=== PATIENT | female | born 1950 | race Caucasian/White ===

== ENCOUNTER 2025-05-03 14:02 | Inpatient (IN) | payer MEDICARE, OTHER ==
[~2025-05-03] VITALS: Ht 157.5 cm; Wt 55.5 kg
[2025-05-03 14:36] LABS: COVID AG,FIA SOURCE NPH
[2025-05-03 14:39] LABS: PLATELET COUNT (AUTO) 151 K/uL (150-450); RED BLOOD CELL COUNT(AUTO) 4.28 MIL/uL (4.00-5.20); RED CELL DISTRIBUTION WIDTH 13.4 % (11.5-14.5); WHITE BLOOD COUNT (AUTO) 3.3 K/uL (4.5-11.0)
[2025-05-03 14:45] LABS: CALCIUM, TOTAL 9.2 mg/dL (8.8-10.5); CREATININE 1.52 mg/dL (0.60-1.30); GLOMERULAR FILTR. RATE CALC 33.0 mL/min (>60); GLUCOSE,RANDOM 133.0 mg/dL (70-110); SODIUM SERUM 145.0 mmol/L (136-145); UREA NITROGEN, BLOOD 31.0 mg/dL (7-18)
[2025-05-03 14:59] LABS: ALCOHOL, BLOOD (SERUM) < 3 mg/dL (0-10)
[2025-05-03 15:04] LABS: SARS-COV2 (COVID) ANTIGEN,FIA Negative (Negative)
[2025-05-03 15:21] LABS: APPEARANCE,URINE CLEAR (CLEAR); GLUCOSE, URINE (UA) NEGATIVE (NEGATIVE); LEUKOCYTE ESTERASE ,URINE MODERATE (NEGATIVE); NITRATE,URINE NEGATIVE (NEGATIVE); OCCULT BLOOD,URINE NEGATIVE (NEGATIVE); PH,URINE DRUG SCREEN 5.0 (5.0-8.0); SPECIFIC GRAVITIY, URINE 1.022 (1.003-1.030)
[2025-05-03 15:30] LABS: PLATELET MORPHOLOGY COMMENT LARGE PLTS PRESENT; RBC MORPHOLOGY COMMENT NORMAL RBC MORPH
[2025-05-03 15:32] LABS: SQUAMOUS EPITHELIAL CELL,UR Few /LPF (None Seen)
[2025-05-03] MEDS ORDERED: MIDO5TAB29 PO (16:02)
[2025-05-03] MEDS ORDERED: MELA5TAB40 PO (16:02)
[2025-05-03] MEDS ORDERED: CHOL25TA4 PO (16:02)
[2025-05-03] MEDS ORDERED: IPRA3AMP23 IH (16:02)
[2025-05-03] MEDS ORDERED: ATOR20TA PO (16:02)
[2025-05-03] MEDS ORDERED: CHLO473M6 PO (16:02)
[2025-05-03] MEDS ORDERED: MAGN-169 PO (16:02)
[2025-05-03] MEDS ORDERED: BISA10SU11 PR (16:02)
[2025-05-03] MEDS ORDERED: SODI133E17 PR (16:02)
[2025-05-03] MEDS ORDERED: CALC-959 PO (16:02)
[2025-05-03] MEDS ORDERED: ACET-2247 PO (16:02)
[2025-05-03] MEDS ORDERED: APIX5TAB PO (16:02)
[2025-05-03] MEDS ORDERED: MULT-1303 PO (16:02)
[2025-05-03] MEDS: SODIUM CHLORIDE 0.9% 1,000 ML IV ONE (16:38)
[2025-05-03 16:49] LABS: LACTIC ACID 1.3 mmol/L (0.4-2.0)
[2025-05-03] MEDS: CefTRIAXone 1 GM/DEXTROSE 50 ML IV ONE (16:56)
[2025-05-03 16:58] LABS: ALCOHOL, URINE DRUG SCREEN NEGATIVE (NEGATIVE); AMPHET/METH SCREEN,URINE NEGATIVE (NEGATIVE); BARBITURATE SCREEN, URINE NEGATIVE (NEGATIVE); CANNABINOID SCREEN,URINE NEGATIVE (NEGATIVE); COCAINE SCREEN,URINE NEGATIVE (NEGATIVE); METHADONE SCREEN, URINE NEGATIVE (NEGATIVE)
[2025-05-03] MEDS ORDERED: BISACODYL 10 MG RECTAL RECTAL SUPPOSITORY PR PRN (18:30)
[2025-05-03] MEDS ORDERED: MAGNESIUM HYDROXIDE SUSPENSION 30 ML UDCUP PO PRN (18:30)
[2025-05-03] MEDS: MIDODRINE HCL 5 MG TABLET PO SCH (19:21)
[2025-05-03 20:55] VITALS: BP 101/87; PULSE 71; RESP 18; TEMP 97.5; O2SAT 100
[2025-05-03] MEDS: ATORVASTATIN CALCIUM 20 MG TABLET PO SCH (21:50)
[2025-05-03] MEDS: APIXABAN 5 MG TABLET PO SCH (21:50)
[2025-05-03] MEDS: CHLORHEXIDINE GLUCONATE 0.12% 15 ML UDCUP ORAL RINSE PO SCH (21:50)
[2025-05-04 03:45] VITALS: BP 133/94; PULSE 77; RESP 18; TEMP 98.2; O2SAT 95
[2025-05-04] MEDS: MULTIVITAMINS WITH MINERALS, THERAPEUTIC TABLET PO SCH (08:22)
[2025-05-04] MEDS: CHOLECALCIFEROL (VIT D3) 1,000 UNITS [25 MCG] TABLET PO SCH (08:22)
[2025-05-04 08:46] VITALS: BP 106/56; PULSE 76; RESP 17; TEMP 97.5; O2SAT 100
[2025-05-04] MEDS: DONEPEZIL HCL 5 MG TABLET PO SCH (09:47)
[2025-05-04] MEDS ORDERED: SODIUM CHLORIDE 0.9% 250 ML IV ONE (11:57)
[2025-05-04] MEDS: CefTRIAXone 1 GM/DEXTROSE 50 ML IV SCH (16:05)
[2025-05-04 16:21] VITALS: BP 130/71; PULSE 62; RESP 18; TEMP 97.7; O2SAT 99
[2025-05-04 20:10] VITALS: BP 111/83; PULSE 88; RESP 18; TEMP 98.2; O2SAT 97
[2025-05-04] MEDS: MELATONIN 5 MG TABLET PO PRN (23:47)
[2025-05-05 05:42] VITALS: BP 133/79; PULSE 63; RESP 20; TEMP 97.6; O2SAT 97
[2025-05-05 08:21] VITALS: BP 123/81; PULSE 86; RESP 20; TEMP 97.8; O2SAT 98
[2025-05-05 10:53] VITALS: BP 121/54; PULSE 71; RESP 19; TEMP 98.2; O2SAT 98
[2025-05-05] MEDS ORDERED: ONDANSETRON HCL 4 MG/2 ML VIAL IVP PRN ×2 (13:45→19:45)
[2025-05-05 15:24] VITALS: BP 129/59; PULSE 66; RESP 18; TEMP 97.7; O2SAT 99
[2025-05-05] MEDS ORDERED: ZOLPIDEM TARTRATE 5 MG TABLET PO PRN (19:45)
[2025-05-05] MEDS ORDERED: ALBUTEROL SULFATE 2.5 MG/0.5 ML NEB SOLUTION NEB PRN (19:45)
[2025-05-05] MEDS ORDERED: BISACODYL 10 MG RECTAL RECTAL SUPPOSITORY PR PRN (19:45)
[2025-05-05] MEDS ORDERED: MORPHINE SULFATE 4 MG/ML SYRINGE IVP PRN (19:45)
[2025-05-05] MEDS ORDERED: ACETAMINOPHEN 325 MG TABLET PO PRN (19:45)
[2025-05-05] MEDS ORDERED: HYDROCODONE/ACETAMINOPHEN 5-325 MG TABLET PO PRN (19:45)
[2025-05-05] MEDS ORDERED: IPRATROPIUM BROMIDE 0.5 MG/2.5 ML NEB SOLUTION NEB PRN (19:45)
[2025-05-05] MEDS ORDERED: MAGNESIUM HYDROXIDE SUSPENSION 30 ML UDCUP PO PRN (19:45)
[2025-05-05 20:07] VITALS: BP 131/59; PULSE 69; RESP 18; TEMP 98.4; O2SAT 98
[2025-05-05 21:29] LABS: PLATELET COUNT (AUTO) 125 K/uL (150-450); RED BLOOD CELL COUNT(AUTO) 3.91 MIL/uL (4.00-5.20); RED CELL DISTRIBUTION WIDTH 12.9 % (11.5-14.5); WHITE BLOOD COUNT (AUTO) 4.0 K/uL (4.5-11.0)
[2025-05-05 21:40] LABS: CALCIUM, TOTAL 9.4 mg/dL (8.8-10.5); CREATININE 1.44 mg/dL (0.60-1.30); GLOMERULAR FILTR. RATE CALC 35.0 mL/min (>60); GLUCOSE,RANDOM 109.0 mg/dL (70-110); SODIUM SERUM 143.0 mmol/L (136-145); UREA NITROGEN, BLOOD 25.0 mg/dL (7-18)
[2025-05-05 21:44] LABS: ASPARTATE AMINOTRANSFERASE 27.0 U/L (15-37); TOTAL PROTEIN, SERUM 6.4 g/dL (6.4-8.2)
[2025-05-05] MEDS: MIDODRINE HCL 5 MG TABLET PO SCH (23:49)
[2025-05-06 05:14] VITALS: BP 75/84; PULSE 134; RESP 18; TEMP 98.1; O2SAT 99
[2025-05-06 08:11] VITALS: BP 134/78; PULSE 76; RESP 17; TEMP 98.1; O2SAT 98
[2025-05-06] MEDS: PANTOPRAZOLE SODIUM 40 MG DR TABLET PO SCH (09:00)
[2025-05-06] MEDS ORDERED: DONE-52 PO (09:28)
== END 2025-05-06 11:32 | DRG 690 ==
LOC: EMS 14:02 → EDBEDREQ 15:46 → EDBEDREQSVC 15:46 → EDH 17:01 → 4E 20:48
PROVIDERS: ADMIT Hospitalist; ATTEND Hospitalist
PROC: GZ58ZZZ Individual Psychotherapy, Cognitive-Behavioral (ICD-10-PCS; principal; 2025-05-04)
PROC: GZ56ZZZ Individual Psychotherapy, Supportive (ICD-10-PCS; 2025-05-04)
DX: N39.0 Urinary tract infection, site not specified (principal); F03.918 Unspecified dementia, unspecified severity, with other behavioral disturbance; F29 Unspecified psychosis not due to a substance or known physiological condition; N17.9 Acute kidney failure, unspecified; I10 Essential (primary) hypertension; F20.9 Schizophrenia, unspecified; F03.90 Unspecified dementia, unspecified severity, without behavioral disturbance, psychotic disturbance, mood disturbance, and anxiety; E78.00 Pure hypercholesterolemia, unspecified; I48.91 Unspecified atrial fibrillation; Z20.822 Contact with and (suspected) exposure to COVID-19
CPT/HCPCS: 80048; 80053; 80307; 81001; 83605; 84443; 85025; 85610; 87040; 87081; 87086; 99285; G0378; G0480; J0696; J7030; J7050